=== PATIENT | male | born 1945 | race Caucasian/White ===

== ENCOUNTER 2022-09-29 13:30 | Outpatient (CLI) | payer MEDICARE, BC, SELFPAY | END 2022-09-29 13:31 | disposition home or self-care (01) | LOC: INJ CL 10-01 07:13 | PROVIDERS: PCP Family Medicine; Visit Provider Family Medicine | DX: M54.16 Radiculopathy, lumbar region (principal); M51.36 Other intervertebral disc degeneration, lumbar region | CPT/HCPCS: 64483; J1100; Q9966 ==

== ENCOUNTER 2023-02-02 09:23 | Outpatient (CLI) | payer MEDICARE, BC, SELFPAY | END 2023-02-02 09:24 | disposition home or self-care (01) | LOC: INJ CL 09:25 | PROVIDERS: PCP Family Medicine; Visit Provider Family Medicine | DX: M51.36 Other intervertebral disc degeneration, lumbar region (principal); M54.16 Radiculopathy, lumbar region | CPT/HCPCS: 64483; J1100; Q9966 ==

== ENCOUNTER 2023-05-11 09:53 | Outpatient (CLI) | payer MEDICARE, BC, SELFPAY | END 2023-05-11 09:54 | disposition home or self-care (01) | LOC: INJ CL 09:53 | PROVIDERS: PCP Family Medicine; Visit Provider Family Medicine | DX: M54.16 Radiculopathy, lumbar region (principal); M51.36 Other intervertebral disc degeneration, lumbar region | CPT/HCPCS: 64483; J1100; Q9966 ==

== ENCOUNTER 2024-04-25 09:26 | Outpatient (CLI) | payer MEDICARE, BC, SELFPAY | END 2024-04-25 09:27 | disposition home or self-care (01) | PROVIDERS: PCP Family Medicine; Visit Provider Family Medicine | DX: M54.16 Radiculopathy, lumbar region (principal); M51.369 Other intervertebral disc degeneration, lumbar region without mention of lumbar back pain or lower extremity pain | CPT/HCPCS: 64483; J1100; Q9966 ==